=== PATIENT | male | born 1965 | race African-American/Black ===

== ENCOUNTER 2018-03-12 15:38 | Inpatient (IN) | payer OTHER ==
[2018-03-12 19:01] VITALS: BMI 34.4
--- NOTE | 2018-03-12 21:28 | HP ---
CIWA Score - CIWA Score Nausea/Vomitin (VOMITING X 3) Muscle Tremors: 4-Moderate,w/Arms Extend Anxiety: 3 Agitation: 1-Slight > Activity Paroxysmal Sweats: 1-Minimal Palms Moist Orientation: 1-Uncertain about Date Tacttile Disturbances: 0-None Auditory Disturbances: 0-None Visual Disturbances: 0-None Headache: 0-None Present CIWA-Ar Total Score: 13 Admission ROS S - HPI Chief Complaint: Alcohol withdrawal symptoms Allergies/Adverse Reactions: Allergies Allergy/AdvReac Type Severity Reaction Status Date / Time No Known Allergies Allergy Verified 03/12/18 21:15 History of Present Illness: 53 years old male with a long history of alcohol dependence is seeking admission to detox. Patient has been to previous detox and reports 5 years of sobriety. He has a pacemaker and medical history of Type 2 Diabetes, Hypertension. Arthritis, Manic depression and anxiety. He reports 3 suicide attempt in 2017 and denies suicidal ideation at this time. Exam Limitations: No Limitations - Ebola screening Have you traveled outside of the country in the last 21 days: No Have you had contact with anyone from an Ebola affected area: No Have you been sick,other than usual withdrawal symptoms: No Do you have a fever: No - Review of Systems Constitutional: Chills, Night Sweats EENT: reports: No Symptoms Reported Respiratory: reports: No Symptoms reported Cardiac: reports: No Symptoms Reported GI: reports: No Symptoms Reported : reports: No Symptoms Reported Musculoskeletal: reports: Back Pain, Joint Pain, Muscle Pain Integumentary: reports: Dryness, Flushing Neuro: reports: Tingling, Tremors Endocrine: reports: No Symptoms Reported Hematology: reports: No Symptoms Reported Psychiatric: reports: Mood/Affect Appropiate, Anxious, Depressed Other Systems: Reviewed and Negative Patient History - Patient Medical History Hx Anemia: No Hx Asthma: No Hx Chronic Obstructive Pulmonary Disease (COPD): No Hx Cancer: No Hx Cardiac Disorders: Yes Hx Congestive Heart Failure: No Hx Hypertension: Yes (LISINOPRIL) Hx Hypercholesterolemia: Yes Hx Pacemaker: Yes (PACEMAKER TO CHEST WALL 2010) HX Cerebrovascular Accident: No Hx Seizures: No Hx Dementia: No Hx Diabetes: Yes Hx Gastrointestinal Disorders: No Hx Sexually Transmitted Disorders: No Hx Renal Disease (ESRD): No Hx Thyroid Disease: No Hx Human Immunodeficiency Virus (HIV): No Hx Depression: Yes (MAJOR DEPRESSION- ON) Hx Suicide Attempt: Yes (USUICIDE ATTEMPT 3 TIMES IN 2017. DENIES ATTEMPT AT TIS TIME) Hx Bipolar Disorder: Yes Hx Schizophrenia: No - Patient Surgical History Past Surgical History: No Hx Neurologic Surgery: No Hx Cataract Extraction: No Hx Cardiac Surgery: Yes (PACEMAKER) Hx Lung Surgery: No Hx Abdominal Surgery: No Hx Appendectomy: No Hx Cholecystectomy: No Hx Genitourinary Surgery: No Hx Orthopedic Surgery: No Anesthesia Reaction: No - PPD History Previous Implant?: Yes Documented Results: Negative w/proof Implanted On Prior [facility] Admission?: No PPD to be Administered?: Yes - Reproductive History Patient is a Female of Child Bearing Age (11 -55 yrs old): No (MALE) - Smoking Cessation Smoking history: Current every day smoker Have you smoked in the past 12 months: Yes Aproximately how many cigarettes per day: 10 Hx Chewing Tobacco Use: No Initiated information on smoking cessation: Yes 'Breaking Loose' booklet given: 03/12/18 - Substance & Tx. History Hx Alcohol Use: Yes Hx Substance Use: Yes Substance Use Type: Cocaine Hx Substance Use Treatment: Yes ([place], [place]) - Substances Abused Alcohol Route: Oral Frequency: Daily Amount used: 12 PACK BEER Age of first use: 17 Date of Last Use: 03/12/18 Cocaine Route: Smoking Frequency: Daily Amount used: 2 GRAM Age of first use: 26 Date of Last Use: 03/12/18 Family Disease History - Family Disease History Family History: Denies Admission Physical Exam BHS - Vital Signs Vital Signs: Vital Signs - 24 hr 03/12/18 18:59 Temperature 98.8 F Pulse Rate 93 H Respiratory 18 Rate Blood Pressure 143/75 - Physical General Appearance: Yes: Moderate Distress, Tremorous, Irritable, Sweating, Anxious HEENTM: Yes: EOMI, Normal ENT Inspection, Normocephalic, Normal Voice, MADELYN Respiratory: Yes: Chest Non-Tender, Lungs Clear, Normal Breath Sounds, No Respiratory Distress, No Accessory Muscle Use Neck: Yes: Supple Breast: Yes: Breast Exam Deferred Cardiology: Yes: Regular Rhythm, Regular Rate, S1, S2 Genitourinary: Yes: Within Normal Limits Back: Yes: Normal Inspection Musculoskeletal: Yes: Back pain, Joint Stiffness, Muscle Pain Extremities: Yes: Tremors Neurological: Yes: Alert, Motor Strength 5/5, Normal Mood/Affect Integumentary: Yes: Dry Lymphatic: Yes: Within Normal Limits - Diagnostic (1) Alcohol dependence with uncomplicated withdrawal Current Visit: Yes Status: Chronic (2) Cocaine dependence, uncomplicated Current Visit: Yes Status: Chronic (3) Sedative, hypnotic or anxiolytic abuse, uncomplicated Current Visit: Yes Status: Chronic (4) Anxiety Current Visit: Yes Status: Chronic (5) Depression Current Visit: Yes Status: Chronic (6) Hypertension Current Visit: Yes Status: Chronic Cleared for Admission [facility] - Detox or Rehab [facility] Level of Care: Medically Managed Detox Regimen/Protocol: Librium [facility] Breath Alcohol Content Breath Alcohol Content: 0 Urine Drug Screen - Results Drug Screen Negative: No Urine Drug Screen Results: DAMARI-Cocaine, BZO-Benzodiazepines
[2018-03-12] MEDS ORDERED: guaiFENesin/D-METHORPHAN HB 10 ML UNIT-DOSE CUPS PO PRN (21:41)
[2018-03-12] MEDS ORDERED: ACETAMINOPHEN 325 MG TABLET (FP) PO PRN (21:41)
[2018-03-12] MEDS ORDERED: chlordiazePOXIDE HCL 25 MG CAPSULE PO PRN (21:41)
[2018-03-12] MEDS ORDERED: MAG HYDROX/AL HYDROX/SIMETH 30 ML UNIT-DOSE CUP PO PRN (21:41)
[2018-03-12] MEDS ORDERED: IBUPROFEN 400 MG TABLET (FP) PO PRN (21:41)
[2018-03-12] MEDS ORDERED: MAGNESIUM CITRATE 300 ML BOTTLE PO PRN (21:41)
[2018-03-12] MEDS ORDERED: P-EPHED 60MG/TRIPROLIDI 2.5MG TABLET PO PRN (21:41)
[2018-03-12] MEDS ORDERED: MENTHOL/PHENOL 1 EACH UD MM PRN (21:41)
[2018-03-12] MEDS ORDERED: MAGNESIUM HYDROX 2400MG/30ML ORAL SUSPENSION 30 ML CUP PO PRN (21:41)
[2018-03-12] MEDS ORDERED: LOPERAMIDE HCL 2 MG CAPSULE PO PRN (21:41)
[2018-03-12] MEDS ORDERED: NICOTINE POLACRILEX 2 MG GUM BC PRN (21:41)
[2018-03-12] MEDS ORDERED: MELATONIN 5 MG TABLETS PO PRN (22:00)
[2018-03-12] MEDS: THIAMINE HCL 100 MG TABLET (FP) PO SCH (23:02)
[2018-03-12] MEDS: INSULIN (LEVEMIR) 100 UNITS/ML UNITS SQ SCH (23:02)
[2018-03-12] MEDS: chlordiazePOXIDE HCL 25 MG CAPSULE PO SCH (23:02)
[2018-03-13] MEDS: chlordiazePOXIDE HCL 25 MG CAPSULE PO SCH ×4 (05:54→22:06)
[2018-03-13] MEDS: metFORMIN HCL 500 MG TABLET (FP) PO SCH ×2 (07:26→17:25)
[2018-03-13] MEDS: PRENATAL VITAMINS W/ FOLIC ACID TABLET (FP) PO SCH (10:15)
[2018-03-13] MEDS: NICOTINE 14 MG/24 HOURS TOPICAL PATCH TD SCH (10:17)
[2018-03-13 10:26] LABS: HEMATOCRIT 36.9 % (35.4-49); HEMOGLOBIN 12.3 GM/dL (11.7-16.9); MCH 28.9 pg (25.7-33.7); MCHC 33.4 g/dl (32.0-35.9); MEAN CELL VOLUME 86.5 fl (80-96); MEAN PLT VOLUME 10.8 fl (7.5-11.1); PLATELET COUNT 180 K/MM3 (134-434); RBC 4.26 M/mm3 (4.00-5.60); WHITE BLOOD COUNT 6.2 K/mm3 (4.0-10.0)
[2018-03-13 10:31] LABS: URINE APPEARANCE CLEAR; URINE BILIRUBIN NEGATIVE (<2.0 mg/dL); URINE COLOR STRAW; URINE GLUCOSE (UA) 3+ (NEGATIVE); URINE KETONE NEGATIVE (NEGATIVE); URINE LEUK ESTERASE NEGATIVE (NEGATIVE); URINE NITRITE NEGATIVE (NEGATIVE); URINE PROTEIN NEGATIVE (NEGATIVE); URINE UROBILINOGEN NEGATIVE mg/dL (0.2-1.0)
[2018-03-13 11:15] LABS: ALBUMIN 3.4 g/dl (3.4-5.0); ANION GAP 9 (8-16); BLOOD UREA NITROGEN 15 mg/dL (7-18); CALCIUM 8.8 mg/dL (8.5-10.1); CHLORIDE 98 mmol/L (98-107); CO2 27 mmol/L (21-32); SODIUM 134 mmol/L (136-145)
[2018-03-13] MEDS: ASPIRIN COATED 81 MG TABLET.EC PO SCH (11:15)
[2018-03-13 11:18] LABS: ALK PHOS 68 U/L (45-117); BILIRUBIN,TOTAL 0.3 mg/dL (0.2-1.0); SGPT/ALT 27 U/L (12-78); TOT PROT 6.4 g/dl (6.4-8.2)
[2018-03-13 11:29] LABS: GLUCOSE,RANDOM 303 mg/dL (74-106)
[2018-03-13 12:21] LABS: POTASSIUM 4.2 mmol/L (3.5-5.1); SGOT/AST 15 U/L (15-37)
--- NOTE | 2018-03-13 14:48 | PN ---
S CIWA - CIWA Score Nausea/Vomitin Muscle Tremors: 3 Anxiety: 3 Agitation: 3 Paroxysmal Sweats: 1-Minimal Palms Moist Orientation: 0-Oriented Tacttile Disturbances: 1-Very Mild Itch/Numbness Auditory Disturbances: 1-Very Mild Visual Disturbances: 0-None Headache: 2-Mild CIWA-Ar Total Score: 17 BHS Progress Note (SOAP) Subjective: alert,irritable,anxious,interrupted sleep,tremor,pain in the left hip s/p surgery Objective: 03/13/18 14:46 Vital Signs Temperature 97.7 F 03/13/18 10:00 Pulse Rate 88 03/13/18 10:00 Respiratory Rate 16 03/13/18 10:00 Blood Pressure 128/75 03/13/18 10:00 O2 Sat by Pulse Oximetry (%) Vital Signs Temperature 97.7 F 03/13/18 10:00 Pulse Rate 88 03/13/18 10:00 Respiratory Rate 16 03/13/18 10:00 Blood Pressure 128/75 03/13/18 10:00 O2 Sat by Pulse Oximetry (%) 03/13/18 14:46 Laboratory Last Values WBC 6.2 K/mm3 (4.0-10.0) 03/13/18 08:00 RBC 4.26 M/mm3 (4.00-5.60) 03/13/18 08:00 Hgb 12.3 GM/dL (11.7-16.9) 03/13/18 08:00 Hct 36.9 % (35.4-49) 03/13/18 08:00 MCV 86.5 fl (80-96) 03/13/18 08:00 MCH 28.9 pg (25.7-33.7) 03/13/18 08:00 MCHC 33.4 g/dl (32.0-35.9) 03/13/18 08:00 RDW 15.0 % (11.9-15.9) 03/13/18 08:00 Plt Count 180 K/MM3 (134-434) 03/13/18 08:00 MPV 10.8 fl (7.5-11.1) 03/13/18 08:00 Sodium 134 mmol/L (136-145) L 03/13/18 08:00 Potassium 4.2 mmol/L (3.5-5.1) 03/13/18 08:00 Chloride 98 mmol/L (98-107) 03/13/18 08:00 Carbon Dioxide 27 mmol/L (21-32) 03/13/18 08:00 Anion Gap 9 (8-16) 03/13/18 08:00 BUN 15 mg/dL (7-18) 03/13/18 08:00 Creatinine 1.0 mg/dL (0.7-1.3) 03/13/18 08:00 Creat Clearance w eGFR > 60 (>60) 03/13/18 08:00 POC Glucometer 266 UNITS (80-120) 03/13/18 05:52 Random Glucose 303 mg/dL (74-106) H* 03/13/18 08:00 Calcium 8.8 mg/dL (8.5-10.1) 03/13/18 08:00 Total Bilirubin 0.3 mg/dL (0.2-1.0) 03/13/18 08:00 AST 15 U/L (15-37) 03/13/18 08:00 ALT 27 U/L (12-78) 03/13/18 08:00 Alkaline Phosphatase 68 U/L (45-117) 03/13/18 08:00 Total Protein 6.4 g/dl (6.4-8.2) 03/13/18 08:00 Albumin 3.4 g/dl (3.4-5.0) 03/13/18 08:00 Urine Color Straw 03/13/18 08:30 Urine Appearance Clear 03/13/18 08:30 Urine pH 5.0 (5.0-8.0) 03/13/18 08:30 Ur Specific [place] 1.030 (1.001-1.035) 03/13/18 08:30 Urine Protein Negative (NEGATIVE) 03/13/18 08:30 Urine Glucose (UA) 3+ (NEGATIVE) H 03/13/18 08:30 Urine Ketones Negative (NEGATIVE) 03/13/18 08:30 Urine Blood Negative (NEGATIVE) 03/13/18 08:30 Urine Nitrite Negative (NEGATIVE) 03/13/18 08:30 Urine Bilirubin Negative (<2.0 mg/dL) 03/13/18 08:30 Urine Urobilinogen Negative mg/dL (0.2-1.0) 03/13/18 08:30 Ur Leukocyte Esterase Negative (NEGATIVE) 03/13/18 08:30 RPR Titer Nonreactive (NONREACTIVE) 03/13/18 08:00 Assessment: 03/13/18 14:47 withdrawal symptom Plan: continue detox,bgm monitoring
--- NOTE | 2018-03-13 16:05 | CONSULT ---
[facility] Psychiatric Consult - Data Date of interview: 03/13/18 Admission source: [facility] Identifying data: First admission to [facility] for this 53 y/o AA male seeking detox treatment on for alcohol,cocaine and canna bis dependence.Patient is ,a father of one,homeless,unemployed and receiving food stamps. Substance Abuse History: Confirmed by patient in this interview.Smoking history : Current every day smoker. Have you smoked in the past 12 months: Yes. Aproximately how many cigarettes per day: 10. Hx Chewing Tobacco Use: No. Initiated information on smoking cessation: Yes. 'Breaking Loose' booklet given : 03/12/18. - Substance & Tx. History. Hx Alcohol Use: Yes. Hx Substance Use : Yes. Substance Use Type: Cocaine. Hx Substance Use Treatment: Yes ([place], [place] - Substances Abused. Alcohol. Route: Oral. Frequency: Daily. Amount used: 12 PACK BEER. Age of first use: 17. Date of Last Use: 03/12/18. Cocaine. Route: Smoking. Frequency: Daily. Amount used: 2 GRAM. Age of first use: 26. Date of Last Use: 03/12/18 Medical History: Diabetes mellitus,hypertension,pacemaker on chest wall and a history of arthritis. Psychiatric History: Patient admits to a history of three psychiatric hospitalizations([facility] in [facility] + facilities in [place] and [place]).Diagnosed with Bipolar Disorder.Mr Lyons that he sees a psychiatrist at the [facility] in [facility].Patient is prescribed abilify and " something else ". Adherence to psychiatric aftercare remains questionable.As per self-report : three suicide attempts (overdose with seroquel + deliberate jump into path of oncoming traffic on two occasions).Most recent attempt occurred around August 2016. Physical/Sexual Abuse/Trauma History: No history. Additional Comment: Urine Drug Screen Results: DAMARI-Cocaine, BZO- Benzodiazepines.Noted. Mental Status Exam - Mental Status Exam Alert and Oriented to: Time, Place, Person Cognitive Function: Good Patient Appearance: Well Groomed Mood: Nervous, Anxious, Hopeful Affect: Mood Congruent Patient Behavior: Fatigued, Appropriate, Cooperative Speech Pattern: Clear Voice Loudness: Normal Thought Process: Intact, Goal Oriented Thought Disorder: Not Present Hallucinations: Denies Suicidal Ideation: Denies Homicidal Ideation: Denies Insight/Judgement: Poor Sleep: Well Appetite: Good Gait/Station: Other (walks with a limp ; currently requesting a cane for support ) Psychiatric Findings - Problem List ([place] 1, 2,3) (1) Alcohol dependence with uncomplicated withdrawal Current Visit: Yes Status: Chronic (2) Cocaine dependence, uncomplicated Current Visit: Yes Status: Chronic (3) Nicotine dependence Current Visit: Yes Status: Acute (4) Substance induced mood disorder Current Visit: Yes Status: Acute Comment: Suspected. (5) Bipolar disorder Current Visit: No Status: Chronic Comment: As per self-report.On aripriprazole. - Initial Treatment Plan Initial Treatment Plan: Psychoeducation.Sleep hygiene.Detoxification in progress.review of pharmacy claims yields evidence of refills for lamotrigine 25 mg/day + abilify 10 mg/day isssued on 03/11/18 at [facility].Will re-start abilify 10 mg po daily.Lamotrigine held.Side effects/ benefits of both drugs are discussed with the patient.Mr Lyons is in agreement with [facility] careplan.Observation.
--- NOTE | 2018-03-13 19:00 | EKG ---
Test Reason : Blood Pressure : / mmHG Vent. Rate : 083 BPM Atrial Rate : 083 BPM P-R Int : 202 ms QRS Dur : 142 ms QT Int : 374 ms P-R-T Axes : 076 059 032 degrees QTc Int : 439 ms NORMAL SINUS RHYTHM RIGHT BUNDLE BRANCH BLOCK ABNORMAL ECG NO PREVIOUS ECGS AVAILABLE Confirmed by MD RITU, YOLIS ([id number]) on 03/13/2018 7:00:24 PM Referred By: Confirmed By:YOLIS CHANEY MD
[2018-03-13] MEDS: INSULIN (LEVEMIR) 100 UNITS/ML UNITS SQ SCH (21:18)
[2018-03-13] MEDS: THIAMINE HCL 100 MG TABLET (FP) PO SCH (21:18)
[2018-03-14] MEDS: chlordiazePOXIDE HCL 25 MG CAPSULE PO SCH ×3 (06:11→17:30)
[2018-03-14] MEDS: metFORMIN HCL 500 MG TABLET (FP) PO SCH ×2 (07:06→17:30)
[2018-03-14] MEDS ORDERED: INSULIN (NOVOLOG) ASPART 100 UNITS/ML 10ML VIAL SQ ONE (07:58)
[2018-03-14] MEDS: NICOTINE 14 MG/24 HOURS TOPICAL PATCH TD SCH (10:14)
[2018-03-14] MEDS: ARIPiprazole 10 MG TABLET PO SCH (10:14)
[2018-03-14] MEDS: ASPIRIN COATED 81 MG TABLET.EC PO SCH (10:14)
[2018-03-14] MEDS: PRENATAL VITAMINS W/ FOLIC ACID TABLET (FP) PO SCH (10:14)
--- NOTE | 2018-03-14 18:10 | PN ---
[facility] CIWA - CIWA Score Nausea/Vomitin-Mild Nausea/No Vomiting Muscle Tremors: 1-None Visible, but [place] Anxiety: 1-Mildly Anxious Agitation: 4-Moderately Restless Paroxysmal Sweats: No Perspiration Orientation: 0-Oriented Tacttile Disturbances: 0-None Auditory Disturbances: 0-None Visual Disturbances: 0-None Headache: 0-None Present CIWA-Ar Total Score: 7 S Progress Note (SOAP) Subjective: c/o mild nausea and anxiety. Tolerating diet well. Objective: Scored 7 on CIWA. Alert and oriented x 3. Lungs CTA. Abdomen soft and non- tender. Bowel sounds (+) 03/14/18 18:08 03/14/18 18:08 Lab Results WBC 6.2 K/mm3 (4.0-10.0) 03/13/18 08:00 RBC 4.26 M/mm3 (4.00-5.60) 03/13/18 08:00 Hgb 12.3 GM/dL (11.7-16.9) 03/13/18 08:00 Hct 36.9 % (35.4-49) 03/13/18 08:00 MCV 86.5 fl (80-96) 03/13/18 08:00 MCHC 33.4 g/dl (32.0-35.9) 03/13/18 08:00 RDW 15.0 % (11.9-15.9) 03/13/18 08:00 Plt Count 180 K/MM3 (134-434) 03/13/18 08:00 Sodium 134 mmol/L (136-145) L 03/13/18 08:00 Potassium 4.2 mmol/L (3.5-5.1) 03/13/18 08:00 Chloride 98 mmol/L (98-107) 03/13/18 08:00 Carbon Dioxide 27 mmol/L (21-32) 03/13/18 08:00 Anion Gap 9 (8-16) 03/13/18 08:00 BUN 15 mg/dL (7-18) 03/13/18 08:00 Creatinine 1.0 mg/dL (0.7-1.3) 03/13/18 08:00 Random Glucose 303 mg/dL (74-106) H* 03/13/18 08:00 Calcium 8.8 mg/dL (8.5-10.1) 03/13/18 08:00 Vital Signs - 24 hr 03/13/18 03/13/18 03/14/18 18:15 23:09 00:30 Temperature 97.9 F 98.2 F Pulse Rate 89 87 Respiratory 20 20 18 Rate Blood Pressure 120/74 119/72 03/14/18 03/14/18 03/14/18 07:35 10:00 15:18 Temperature 97.3 F L 97.1 F L 97.3 F L Pulse Rate 73 89 91 H Respiratory 18 16 20 Rate Blood Pressure 138/78 149/89 154/78 Labs reviewed. Assessment: Alcohol withdrawal. Plan: Continue detox protocol.
[2018-03-14] MEDS: INSULIN (LEVEMIR) 100 UNITS/ML UNITS SQ SCH (22:26)
[2018-03-14] MEDS: THIAMINE HCL 100 MG TABLET (FP) PO SCH (22:26)
[2018-03-14] MEDS: chlordiazePOXIDE 5 MG CAPSULE PO SCH (22:26)
[2018-03-15] MEDS: chlordiazePOXIDE 5 MG CAPSULE PO SCH ×3 (06:13→16:27)
[2018-03-15] MEDS: metFORMIN HCL 500 MG TABLET (FP) PO SCH ×2 (06:27→16:27)
[2018-03-15] MEDS ORDERED: INSULIN (NOVOLOG) ASPART 100 UNITS/ML 10ML VIAL SQ ONE (08:10)
[2018-03-15] MEDS ORDERED: INSULIN (NOVOLOG) ASPART 100 UNITS/ML 10ML VIAL ONE ×3 (08:58→21:59)
[2018-03-15] MEDS: ARIPiprazole 10 MG TABLET PO SCH (10:20)
[2018-03-15] MEDS: ASPIRIN COATED 81 MG TABLET.EC PO SCH (10:20)
[2018-03-15] MEDS: PRENATAL VITAMINS W/ FOLIC ACID TABLET (FP) PO SCH (10:20)
[2018-03-15] MEDS: NICOTINE 14 MG/24 HOURS TOPICAL PATCH TD SCH (10:21)
[2018-03-15] MEDS: INSULIN (NOVOLOG) ASPART 100 UNITS/ML 10ML VIAL SQ SCH ×3 (11:28→22:06)
--- NOTE | 2018-03-15 12:56 | PN ---
BHS Progress Note (SOAP) Subjective: alert,irritable,anxious,interrupted sleep, Objective: 03/15/18 12:52 Vital Signs Temperature 97.7 F 03/15/18 11:06 Pulse Rate 95 H 03/15/18 11:06 Respiratory Rate 18 03/15/18 11:06 Blood Pressure 141/78 03/15/18 11:06 O2 Sat by Pulse Oximetry (%) 03/15/18 12:53 withdrawal symptom 03/15/18 12:53 bgm 360 Assessment: 03/15/18 12:54 withdrawal symptom Plan: continue detox,bgm achs with insulin cerage,hba1c,discharge in am,advise follow up with primary care provider and own client support associate at [facility] upon discharge
[2018-03-15] MEDS: THIAMINE HCL 100 MG TABLET (FP) PO SCH (22:05)
[2018-03-15] MEDS: chlordiazePOXIDE HCL 10 MG CAPSULE PO SCH (22:05)
[2018-03-15] MEDS: INSULIN (LEVEMIR) 100 UNITS/ML UNITS SQ SCH (22:08)
[2018-03-16] MEDS: chlordiazePOXIDE HCL 10 MG CAPSULE PO SCH (05:50)
[2018-03-16] MEDS: metFORMIN HCL 500 MG TABLET (FP) PO SCH (06:04)
[2018-03-16 06:23] VITALS: BP 121/76; PULSE 79; TEMP 97.9
[2018-03-16] MEDS ORDERED: INSULIN (NOVOLOG) ASPART 100 UNITS/ML 10ML VIAL ONE (07:44)
[2018-03-16] MEDS: INSULIN (NOVOLOG) ASPART 100 UNITS/ML 10ML VIAL SQ SCH ×2 (07:44→11:46)
--- NOTE | 2018-03-16 10:13 | PN ---
BHS Progress Note (SOAP) Subjective: alert,no complaint Objective: 03/16/18 10:07 Vital Signs Temperature 97.9 F 03/16/18 06:00 Pulse Rate 79 03/16/18 06:00 Respiratory Rate 18 03/16/18 06:00 Blood Pressure 121/76 03/16/18 06:00 O2 Sat by Pulse Oximetry (%) 03/16/18 10:07 bgm 356 Assessment: 03/16/18 10:09 detox completed ,no withdrawal symptom Plan: discharge today,follow up with after care program as arrangement and primary care physician and fourth hand for diabetic management and medical problem ,to er if emergency medical problem
--- NOTE | 2018-03-16 10:18 | DS ---
[facility] Detox Discharge Summary Admission Date: 03/12/18 Discharge Date: 03/16/18 - History Present History: Alcohol Dependence, Cocaine Dependence, Sedative Dependence Additional Comments: follow up with after care program as arrangement and to see primary care provider and emr implementation specialist for diabetic problem to er if emergency medical problem Pertinent Past History: hypertension type 2 dm insulin dependence - Physical Exam Results Vital Signs: Vital Signs Temperature 97.9 F 03/16/18 06:00 Pulse Rate 79 03/16/18 06:00 Respiratory Rate 18 03/16/18 06:00 Blood Pressure 121/76 03/16/18 06:00 O2 Sat by Pulse Oximetry (%) Pertinent Admission Physical Exam Findings: withdrawal signs and symptom Vital Signs Temperature 97.9 F 03/16/18 06:00 Pulse Rate 79 03/16/18 06:00 Respiratory Rate 18 03/16/18 06:00 Blood Pressure 121/76 03/16/18 06:00 O2 Sat by Pulse Oximetry (%) Laboratory Last Values WBC 6.2 K/mm3 (4.0-10.0) 03/13/18 08:00 RBC 4.26 M/mm3 (4.00-5.60) 03/13/18 08:00 Hgb 12.3 GM/dL (11.7-16.9) 03/13/18 08:00 Hct 36.9 % (35.4-49) 03/13/18 08:00 MCV 86.5 fl (80-96) 03/13/18 08:00 MCH 28.9 pg (25.7-33.7) 03/13/18 08:00 MCHC 33.4 g/dl (32.0-35.9) 03/13/18 08:00 RDW 15.0 % (11.9-15.9) 03/13/18 08:00 Plt Count 180 K/MM3 (134-434) 03/13/18 08:00 MPV 10.8 fl (7.5-11.1) 03/13/18 08:00 Sodium 134 mmol/L (136-145) L 03/13/18 08:00 Potassium 4.2 mmol/L (3.5-5.1) 03/13/18 08:00 Chloride 98 mmol/L (98-107) 03/13/18 08:00 Carbon Dioxide 27 mmol/L (21-32) 03/13/18 08:00 Anion Gap 9 (8-16) 03/13/18 08:00 BUN 15 mg/dL (7-18) 03/13/18 08:00 Creatinine 1.0 mg/dL (0.7-1.3) 03/13/18 08:00 Creat Clearance w eGFR > 60 (>60) 03/13/18 08:00 POC Glucometer 356 UNITS (80-120) 03/16/18 05:52 Random Glucose 303 mg/dL (74-106) H* 03/13/18 08:00 Calcium 8.8 mg/dL (8.5-10.1) 03/13/18 08:00 Total Bilirubin 0.3 mg/dL (0.2-1.0) 03/13/18 08:00 AST 15 U/L (15-37) 03/13/18 08:00 ALT 27 U/L (12-78) 03/13/18 08:00 Alkaline Phosphatase 68 U/L (45-117) 03/13/18 08:00 Total Protein 6.4 g/dl (6.4-8.2) 03/13/18 08:00 Albumin 3.4 g/dl (3.4-5.0) 03/13/18 08:00 Urine Color Straw 03/13/18 08:30 Urine Appearance Clear 03/13/18 08:30 Urine pH 5.0 (5.0-8.0) 03/13/18 08:30 Ur Specific [place] 1.030 (1.001-1.035) 03/13/18 08:30 Urine Protein Negative (NEGATIVE) 03/13/18 08:30 Urine Glucose (UA) 3+ (NEGATIVE) H 03/13/18 08:30 Urine Ketones Negative (NEGATIVE) 03/13/18 08:30 Urine Blood Negative (NEGATIVE) 03/13/18 08:30 Urine Nitrite Negative (NEGATIVE) 03/13/18 08:30 Urine Bilirubin Negative (<2.0 mg/dL) 03/13/18 08:30 Urine Urobilinogen Negative mg/dL (0.2-1.0) 03/13/18 08:30 Ur Leukocyte Esterase Negative (NEGATIVE) 03/13/18 08:30 RPR Titer Nonreactive (NONREACTIVE) 08/18/18 08:00 - Treatment Hospital Course: Detox Protocol Followed, Detoxed Safely, Responded well, Discharged Condition Good Patient has Accepted a Rehab Referral to: declined - Medication Discharge Medications: Ambulatory Orders Aripiprazole 10 mg PO DAILY 03/12/18 Aripiprazole [Abilify] 20 mg PO DAILY 03/12/18 Aspirin [Aspirin EC] 81 mg PO DAILY 03/12/18 Insulin Detemir [Levemir Flextouch] 35 unit SQ HS 03/12/18 Lamotrigine [Lamictal] 5 mg PO DAILY 03/12/18 Omeprazole Magnesium [Prilosec Otc] 40 mg PO DAILY 03/12/18 metFORMIN HCL [Metformin HCl] 1,000 mg PO BID 03/12/18 - Diagnosis (1) Alcohol dependence with uncomplicated withdrawal Current Visit: Yes Status: Chronic (2) Anxiety Current Visit: Yes Status: Chronic (3) Cocaine dependence, uncomplicated Current Visit: Yes Status: Chronic (4) Depression Current Visit: Yes Status: Chronic (5) Hypertension Current Visit: Yes Status: Chronic Qualifiers: Hypertension type: unspecified Qualified Code(s): I10 - Essential (primary ) hypertension (6) Sedative, hypnotic or anxiolytic abuse, uncomplicated Current Visit: Yes Status: Chronic (7) DM2 (diabetes mellitus, type 2) Current Visit: Yes Status: Acute (8) IDDM (insulin dependent diabetes mellitus) Current Visit: Yes Status: Acute - AMA Did Patient Leave Against Medical Advice: No
[2018-03-16] MEDS: NICOTINE 14 MG/24 HOURS TOPICAL PATCH TD SCH (10:48)
[2018-03-16] MEDS: PRENATAL VITAMINS W/ FOLIC ACID TABLET (FP) PO SCH (10:48)
[2018-03-16] MEDS: ARIPiprazole 10 MG TABLET PO SCH (10:48)
[2018-03-16] MEDS: ASPIRIN COATED 81 MG TABLET.EC PO SCH (10:49)
== END 2018-03-16 11:45 | disposition other institution (70) | DRG 774 ==
LOC: YASAS 15:38 → Y6N 20:24
PROVIDERS: ADMIT Surgery; ATTEND Surgery
PROC: HZ2ZZZZ Detoxification Services for Substance Abuse Treatment (ICD-10-PCS; principal; 2018-03-12)
DX: F10.230 Alcohol dependence with withdrawal, uncomplicated (principal); F14.20 Cocaine dependence, uncomplicated; F13.10 Sedative, hypnotic or anxiolytic abuse, uncomplicated; F17.210 Nicotine dependence, cigarettes, uncomplicated; F41.9 Anxiety disorder, unspecified; F32.9 Major depressive disorder, single episode, unspecified; F19.24 Other psychoactive substance dependence with psychoactive substance-induced mood disorder; F31.9 Bipolar disorder, unspecified; I10 Essential (primary) hypertension; E11.8 Type 2 diabetes mellitus with unspecified complications; E78.00 Pure hypercholesterolemia, unspecified; Z79.4 Long term (current) use of insulin; Z79.84 Long term (current) use of oral hypoglycemic drugs; Z95.0 Presence of cardiac pacemaker; Z91.5 Personal history of self-harm; Z59.0 Homelessness
CPT/HCPCS: 36415; 80053; 81003; 82962; 85027; 86593; 93005; 93010

== ENCOUNTER 2018-03-16 12:59 | Inpatient (IN) | payer OTHER ==
[2018-03-16] MEDS ORDERED: MAGNESIUM CITRATE 300 ML BOTTLE PO PRN (14:00)
[2018-03-16] MEDS ORDERED: guaiFENesin/D-METHORPHAN HB 10 ML UNIT-DOSE CUPS PO PRN (14:00)
[2018-03-16] MEDS ORDERED: IBUPROFEN 400 MG TABLET (FP) PO PRN (14:00)
[2018-03-16] MEDS ORDERED: MENTHOL/PHENOL 1 EACH UD MM PRN (14:00)
[2018-03-16] MEDS ORDERED: ACETAMINOPHEN 325 MG TABLET (FP) PO PRN (14:00)
[2018-03-16] MEDS ORDERED: MAGNESIUM HYDROX 2400MG/30ML ORAL SUSPENSION 30 ML CUP PO PRN (14:00)
[2018-03-16] MEDS ORDERED: P-EPHED 60MG/TRIPROLIDI 2.5MG TABLET PO PRN (14:00)
[2018-03-16] MEDS ORDERED: hydrOXYzine PAMOATE 50 MG CAPSULE (FP) PO PRN (14:00)
[2018-03-16] MEDS ORDERED: MAG HYDROX/AL HYDROX/SIMETH 30 ML UNIT-DOSE CUP PO PRN (14:00)
[2018-03-16] MEDS ORDERED: LOPERAMIDE HCL 2 MG CAPSULE PO PRN (14:00)
--- NOTE | 2018-03-16 14:00 | HP ---
[facility] Rehab Assess/Revision - Admission History Admitted to Rehab from: [facility] Date of Admission to Rehab: 03/16/18 - Findings Detox History & Physical reviewed: Yes Concur with findings: Yes Comments/Additional Findings: for rehab as protocol Inpatient Rehab Admission - Initial Determination Are CD services needed?: Yes Free of communicable disease: Yes Not in need of hospitalization: Yes - Rehab Admission Criteria Previous failed treatment: Yes Poor recovery environment: Yes Comorbidities: Yes Lacks judgement: No Patient is meeting Inpatient Rehab admission criteria:: Yes
--- NOTE | 2018-03-16 15:08 | PN ---
S Progress Note Note: Psychiatrist Note: Called by nurse to order medication for newly admitted patient from . External medication shows pharmacy claims for scripts of Abilify 10 mg daily and Lamotrigine 25 mg daily filed on 03/11/18. Medications ordered for patient
[2018-03-16] MEDS: INSULIN (NOVOLOG) ASPART 100 UNITS/ML 10ML VIAL SQ SCH ×2 (16:59→21:28)
[2018-03-16] MEDS: metFORMIN HCL 500 MG TABLET (FP) PO SCH (16:59)
--- NOTE | 2018-03-16 17:05 | PN ---
[facility] Progress Note Note: Vital Signs Temperature 98.8 F 03/16/18 14:07 Pulse Rate 93 H 03/16/18 14:07 Respiratory Rate 18 03/16/18 14:07 Blood Pressure 138/86 03/16/18 14:07 O2 Sat by Pulse Oximetry (%) Call received from MAVIS Vicente re: asymptomatic patient, BGM 527, patient was given metformin and novolog 12 units and additional 4 units of novolog ordered increase PO fluids repeat BGM in 30 - 45 min continue to monitor
[2018-03-16] MEDS ORDERED: INSULIN (NOVOLOG) ASPART 100 UNITS/ML 10ML VIAL SQ ONE (17:15)
[2018-03-16] MEDS ORDERED: INSULIN (NOVOLOG) ASPART 100 UNITS/ML 10ML VIAL ONE ×2 (17:23)
[2018-03-16] MEDS: THIAMINE HCL 100 MG TABLET (FP) PO SCH (21:24)
[2018-03-16] MEDS: INSULIN (LEVEMIR) 100 UNITS/ML UNITS SQ SCH (21:24)
[2018-03-16] MEDS ORDERED: MELATONIN 5 MG TABLETS PO PRN (22:00)
[2018-03-17] MEDS ORDERED: INSULIN (NOVOLOG) ASPART 100 UNITS/ML 10ML VIAL SQ ONE (03:58)
[2018-03-17] MEDS: metFORMIN HCL 500 MG TABLET (FP) PO SCH ×2 (06:22→16:51)
[2018-03-17] MEDS ORDERED: INSULIN (NOVOLOG) ASPART 100 UNITS/ML 10ML VIAL ONE ×4 (06:53→23:06)
[2018-03-17] MEDS: INSULIN (NOVOLOG) ASPART 100 UNITS/ML 10ML VIAL SQ SCH ×4 (06:55→21:23)
--- NOTE | 2018-03-17 08:32 | HP ---
Psychiatrist Admission - Data Date of interview: 03/17/18 Admission source: [facility] Identifying data: Patient is a 53 year old single male, father of one, unemployed (denies receiving financial assistance), and currently homeless. This is patient's first admission to rehab at [facility]. Pt. admitted to for alcohol, cocaine, and marijuana dependence. Medical History: hypertension, pacemaker Psychiatric History: Patient's first psychiatric contact was in [facility] for depression. Pt. was started on celexa. Patient's depression got worst as time progress and patient soon began to develop anxiety. Patient states his depression worsen to manic depression. Pt. reports multiple psychiatric hospitalizations, most recently was in January of 2018 at [facility]. Patient is also known to [facility] and other hospitals in [facility]. OPD is currently provided at [facility]. Diagnosis of bipolar disorder. Pt. is currently prescribed abilify 10mg + Lamictal 25mg daily. Patient reports three suicide attempts all in 2017 (two attempts he jumped in front of a car and the third attempt patient overdosed on seroquel). Pt currently denies suicidal and homicidal ideation. Physical/Sexual Abuse/Trauma History: denies Vital Signs: Vital Signs - 24 hr 03/16/18 03/17/18 03/17/18 14:07 01:02 03:30 Temperature 98.8 F Pulse Rate 93 H Respiratory 18 18 18 Rate Blood Pressure 138/86 03/17/18 06:47 Temperature 97.1 F L Pulse Rate 87 Respiratory 18 Rate Blood Pressure 141/90 Allergies/Adverse Reactions: Allergies Allergy/AdvReac Type Severity Reaction Status Date / Time No Known Allergies Allergy Verified 03/16/18 13:30 Date of last physical exam: 03/12/18 Concur with the findings of this exam: Yes - Substance Abuse/Tx History Hx Alcohol Use: Yes (12 beers daily + pint depending on how much money he has. ) Hx Substance Use: Yes (cocaine- 2 grams daily Marijuana- 1 gram daily) Substance Use Type: Cocaine, Marijuana Hx Substance Use Treatment: Yes ([facility] in [place]) Mental Status Exam - Mental Status Exam Alert and Oriented to: Time, Place, Person Cognitive Function: Good Patient Appearance: Well Groomed Mood: Euthymic Affect: Appropriate, Mood Congruent Patient Behavior: Appropriate, Cooperative Speech Pattern: Clear, Appropriate Voice Loudness: Normal Thought Process: Intact Thought Disorder: Not Present Hallucinations: Denies Suicidal Ideation: Denies Homicidal Ideation: Denies Insight/Judgement: Poor Sleep: Fair Appetite: Fair Muscle strength/Tone: Normal Gait/Station: Other (Patient ambulates with a cane.) Psychiatric Findings - Problem List ([place] 1, 2,3) (1) Bipolar disorder Current Visit: Yes Status: Chronic Comment: As per self-report.On aripriprazole. (2) Alcohol dependence Current Visit: Yes Status: Acute (3) Cocaine dependence Current Visit: Yes Status: Chronic - Initial Treatment Plan Initial Treatment Plan: Psychoeducation provided. Detoxification in progress. Will continue current medications of abilify 10mg + Lamictal 25mg daily. Benefits and side effects discussed. Verbal consent given.
[2018-03-17] MEDS: lamoTRIgine 25 MG TABLET PO SCH (10:02)
[2018-03-17] MEDS: PRENATAL VITAMINS W/ FOLIC ACID TABLET (FP) PO SCH (10:02)
[2018-03-17] MEDS: ARIPiprazole 10 MG TABLET PO SCH (10:02)
[2018-03-17] MEDS: LISINOPRIL 10 MG TABLET (FP) PO SCH (10:02)
[2018-03-17] MEDS: ASPIRIN COATED 81 MG TABLET.EC PO SCH (10:03)
--- NOTE | 2018-03-17 13:31 | PN ---
[facility] Progress Note Note: Vital Signs Temperature 97.1 F L 03/17/18 06:47 Pulse Rate 93 H 03/17/18 10:00 Respiratory Rate 18 03/17/18 06:47 Blood Pressure 142/86 03/17/18 10:00 O2 Sat by Pulse Oximetry (%) Laboratory Last Values POC Glucometer 349 UNITS (80-120) 03/17/18 06:21 Patient reports last A1C at PCP office about three months ago of 12. Reports concern regarding recent elevated BGM. Patient currently on metformin 1000mg BID and levemir qhs. Patient was started yesterday on sliding scale and BGM today shows improvement. c/o of dry skin on both feet. Patient stable, no distress, no symptoms reported at this times A&D oint for dry skin continue to monitor
[2018-03-17] MEDS: VITAMINS A AND D TOPICAL OINTMENT 60 GM TUBE TP SCH ×2 (15:00→21:23)
[2018-03-17] MEDS: INSULIN (LEVEMIR) 100 UNITS/ML UNITS SQ SCH (21:22)
[2018-03-17] MEDS: THIAMINE HCL 100 MG TABLET (FP) PO SCH (21:23)
--- NOTE | 2018-03-17 22:08 | PN ---
[facility] Progress Note Note: Vital Signs Temperature 97.1 F L 03/17/18 06:47 Pulse Rate 93 H 03/17/18 10:00 Respiratory Rate 18 03/17/18 06:47 Blood Pressure 142/86 03/17/18 10:00 O2 Sat by Pulse Oximetry (%) Patient with hx of DAMARI, ETOH, and Benzo dependence is here for rehab. Reports polyuria with 11 trips to the bathroom this afternoon. Reports "not feeling well " and hx of seizure related to elevated glucose. Patient with BGM 514. Patient was given novolog 12 units today at 21:23 and 35 units levemir at 21: 22 and Glucophage 1,000 mg 16:51. Patient sent to [facility] for further evaluation via [facility], multiple calls made endorse patient with no success.
[2018-03-18] MEDS: VITAMINS A AND D TOPICAL OINTMENT 60 GM TUBE TP SCH ×3 (07:22→21:27)
[2018-03-18] MEDS: INSULIN (NOVOLOG) ASPART 100 UNITS/ML 10ML VIAL SQ SCH ×4 (07:23→21:26)
[2018-03-18] MEDS: metFORMIN HCL 500 MG TABLET (FP) PO SCH ×2 (07:23→16:36)
[2018-03-18] MEDS: ARIPiprazole 10 MG TABLET PO SCH (10:16)
[2018-03-18] MEDS: lamoTRIgine 25 MG TABLET PO SCH (10:16)
[2018-03-18] MEDS: LISINOPRIL 10 MG TABLET (FP) PO SCH (10:16)
[2018-03-18] MEDS: PRENATAL VITAMINS W/ FOLIC ACID TABLET (FP) PO SCH (10:16)
[2018-03-18] MEDS: ASPIRIN COATED 81 MG TABLET.EC PO SCH (10:16)
[2018-03-18] MEDS: CYCLOBENZAPRINE HCL 10 MG TABLET (FP) PO PRN ×2 (10:17→21:28)
[2018-03-18] MEDS ORDERED: INSULIN (NOVOLOG) ASPART 100 UNITS/ML 10ML VIAL ONE ×3 (11:52→16:59)
[2018-03-18] MEDS: INSULIN (LEVEMIR) 100 UNITS/ML UNITS SQ SCH (21:25)
[2018-03-18] MEDS: THIAMINE HCL 100 MG TABLET (FP) PO SCH (21:27)
[2018-03-19] MEDS: metFORMIN HCL 500 MG TABLET (FP) PO SCH ×2 (06:43→16:45)
[2018-03-19] MEDS ORDERED: INSULIN (NOVOLOG) ASPART 100 UNITS/ML 10ML VIAL ONE ×4 (07:30→21:48)
[2018-03-19] MEDS: INSULIN (NOVOLOG) ASPART 100 UNITS/ML 10ML VIAL SQ SCH ×4 (07:31→21:15)
[2018-03-19] MEDS: VITAMINS A AND D TOPICAL OINTMENT 60 GM TUBE TP SCH ×3 (07:33→21:16)
[2018-03-19] MEDS: ARIPiprazole 10 MG TABLET PO SCH (10:02)
[2018-03-19] MEDS: PRENATAL VITAMINS W/ FOLIC ACID TABLET (FP) PO SCH (10:02)
[2018-03-19] MEDS: ASPIRIN COATED 81 MG TABLET.EC PO SCH (10:02)
[2018-03-19] MEDS: lamoTRIgine 25 MG TABLET PO SCH (10:02)
[2018-03-19] MEDS: LISINOPRIL 10 MG TABLET (FP) PO SCH (10:02)
--- NOTE | 2018-03-19 13:13 | PN ---
[facility] Progress Note Note: superficial laceration volar aspect of right big toe no bleeding,no erythema, bacitracin ointment bid, diabetic control with bgm monitoring
[2018-03-19] MEDS: BACITRACIN 0.9 GM PACKET TP SCH ×2 (14:36→21:16)
[2018-03-19] MEDS: CYCLOBENZAPRINE HCL 10 MG TABLET (FP) PO PRN (14:38)
[2018-03-19] MEDS: THIAMINE HCL 100 MG TABLET (FP) PO SCH (21:15)
[2018-03-19] MEDS: INSULIN (LEVEMIR) 100 UNITS/ML UNITS SQ SCH (21:15)
[2018-03-20] MEDS: metFORMIN HCL 500 MG TABLET (FP) PO SCH ×2 (06:17→16:40)
[2018-03-20] MEDS: VITAMINS A AND D TOPICAL OINTMENT 60 GM TUBE TP SCH ×3 (06:19→22:05)
[2018-03-20] MEDS: INSULIN (NOVOLOG) ASPART 100 UNITS/ML 10ML VIAL SQ SCH ×4 (06:19→22:04)
[2018-03-20] MEDS: ASPIRIN COATED 81 MG TABLET.EC PO SCH (10:01)
[2018-03-20] MEDS: LISINOPRIL 10 MG TABLET (FP) PO SCH (10:01)
[2018-03-20] MEDS: PRENATAL VITAMINS W/ FOLIC ACID TABLET (FP) PO SCH (10:01)
[2018-03-20] MEDS: lamoTRIgine 25 MG TABLET PO SCH (10:01)
[2018-03-20] MEDS: BACITRACIN 0.9 GM PACKET TP SCH ×2 (10:01→22:03)
[2018-03-20] MEDS: ARIPiprazole 10 MG TABLET PO SCH (10:02)
[2018-03-20] MEDS ORDERED: INSULIN (NOVOLOG) ASPART 100 UNITS/ML 10ML VIAL ONE ×2 (12:14→17:13)
[2018-03-20] MEDS: THIAMINE HCL 100 MG TABLET (FP) PO SCH (22:03)
[2018-03-20] MEDS: INSULIN (LEVEMIR) 100 UNITS/ML UNITS SQ SCH (22:04)
[2018-03-21] MEDS: VITAMINS A AND D TOPICAL OINTMENT 60 GM TUBE TP SCH ×3 (06:01→21:17)
[2018-03-21] MEDS: metFORMIN HCL 500 MG TABLET (FP) PO SCH ×2 (06:02→16:45)
[2018-03-21] MEDS: INSULIN (NOVOLOG) ASPART 100 UNITS/ML 10ML VIAL SQ SCH ×4 (06:05→21:17)
[2018-03-21] MEDS: PRENATAL VITAMINS W/ FOLIC ACID TABLET (FP) PO SCH (09:51)
[2018-03-21] MEDS: lamoTRIgine 25 MG TABLET PO SCH (09:51)
[2018-03-21] MEDS: LISINOPRIL 10 MG TABLET (FP) PO SCH (09:51)
[2018-03-21] MEDS: BACITRACIN 0.9 GM PACKET TP SCH ×2 (09:51→21:17)
[2018-03-21] MEDS: ARIPiprazole 10 MG TABLET PO SCH (09:51)
[2018-03-21] MEDS: ASPIRIN COATED 81 MG TABLET.EC PO SCH (09:51)
[2018-03-21] MEDS ORDERED: INSULIN (NOVOLOG) ASPART 100 UNITS/ML 10ML VIAL ONE ×3 (12:05→21:50)
[2018-03-21] MEDS: THIAMINE HCL 100 MG TABLET (FP) PO SCH (21:17)
[2018-03-21] MEDS: INSULIN (LEVEMIR) 100 UNITS/ML UNITS SQ SCH (21:17)
[2018-03-22] MEDS: metFORMIN HCL 500 MG TABLET (FP) PO SCH ×2 (06:41→17:09)
[2018-03-22] MEDS ORDERED: INSULIN (NOVOLOG) ASPART 100 UNITS/ML 10ML VIAL ONE ×3 (07:45→21:29)
[2018-03-22] MEDS: INSULIN (NOVOLOG) ASPART 100 UNITS/ML 10ML VIAL SQ SCH ×4 (07:46→21:32)
[2018-03-22] MEDS: VITAMINS A AND D TOPICAL OINTMENT 60 GM TUBE TP SCH ×3 (07:47→21:33)
[2018-03-22] MEDS: lamoTRIgine 25 MG TABLET PO SCH (10:17)
[2018-03-22] MEDS: BACITRACIN 0.9 GM PACKET TP SCH ×2 (10:17→21:28)
[2018-03-22] MEDS: ARIPiprazole 10 MG TABLET PO SCH (10:17)
[2018-03-22] MEDS: ASPIRIN COATED 81 MG TABLET.EC PO SCH (10:17)
[2018-03-22] MEDS: LISINOPRIL 10 MG TABLET (FP) PO SCH (10:17)
[2018-03-22] MEDS: PRENATAL VITAMINS W/ FOLIC ACID TABLET (FP) PO SCH (10:18)
[2018-03-22] MEDS: CYCLOBENZAPRINE HCL 5 MG TABLET PO PRN ×2 (14:45→21:29)
[2018-03-22] MEDS: THIAMINE HCL 100 MG TABLET (FP) PO SCH (21:28)
[2018-03-22] MEDS: INSULIN (LEVEMIR) 100 UNITS/ML UNITS SQ SCH (21:32)
[2018-03-23] MEDS: metFORMIN HCL 500 MG TABLET (FP) PO SCH ×2 (06:07→16:47)
[2018-03-23] MEDS ORDERED: INSULIN (NOVOLOG) ASPART 100 UNITS/ML 10ML VIAL ONE ×4 (06:09→21:54)
[2018-03-23] MEDS: INSULIN (NOVOLOG) ASPART 100 UNITS/ML 10ML VIAL SQ SCH ×4 (06:11→21:19)
[2018-03-23] MEDS: VITAMINS A AND D TOPICAL OINTMENT 60 GM TUBE TP SCH ×3 (07:04→21:20)
[2018-03-23] MEDS: PRENATAL VITAMINS W/ FOLIC ACID TABLET (FP) PO SCH (09:44)
[2018-03-23] MEDS: ARIPiprazole 10 MG TABLET PO SCH (09:45)
[2018-03-23] MEDS: ASPIRIN COATED 81 MG TABLET.EC PO SCH (09:45)
[2018-03-23] MEDS: LISINOPRIL 10 MG TABLET (FP) PO SCH (09:45)
[2018-03-23] MEDS: BACITRACIN 0.9 GM PACKET TP SCH ×2 (09:45→21:19)
[2018-03-23] MEDS: lamoTRIgine 25 MG TABLET PO SCH (09:45)
[2018-03-23] MEDS: THIAMINE HCL 100 MG TABLET (FP) PO SCH (21:19)
[2018-03-23] MEDS: INSULIN (LEVEMIR) 100 UNITS/ML UNITS SQ SCH (21:19)
[2018-03-24] MEDS: metFORMIN HCL 500 MG TABLET (FP) PO SCH ×2 (06:52→17:00)
[2018-03-24] MEDS ORDERED: INSULIN (NOVOLOG) ASPART 100 UNITS/ML 10ML VIAL ONE ×2 (06:56→11:43)
[2018-03-24] MEDS: VITAMINS A AND D TOPICAL OINTMENT 60 GM TUBE TP SCH ×3 (07:02→21:21)
[2018-03-24] MEDS: INSULIN (NOVOLOG) ASPART 100 UNITS/ML 10ML VIAL SQ SCH ×4 (07:03→21:22)
[2018-03-24] MEDS: BACITRACIN 0.9 GM PACKET TP SCH ×2 (09:52→21:20)
[2018-03-24] MEDS: LISINOPRIL 10 MG TABLET (FP) PO SCH (09:52)
[2018-03-24] MEDS: ASPIRIN COATED 81 MG TABLET.EC PO SCH (09:52)
[2018-03-24] MEDS: ARIPiprazole 10 MG TABLET PO SCH (09:52)
[2018-03-24] MEDS: lamoTRIgine 25 MG TABLET PO SCH (09:52)
[2018-03-24] MEDS: PRENATAL VITAMINS W/ FOLIC ACID TABLET (FP) PO SCH (09:52)
[2018-03-24] MEDS: THIAMINE HCL 100 MG TABLET (FP) PO SCH (21:21)
[2018-03-24] MEDS: INSULIN (LEVEMIR) 100 UNITS/ML UNITS SQ SCH (21:22)
[2018-03-25] MEDS: metFORMIN HCL 500 MG TABLET (FP) PO SCH ×2 (06:34→16:56)
[2018-03-25] MEDS ORDERED: INSULIN (NOVOLOG) ASPART 100 UNITS/ML 10ML VIAL ONE ×2 (06:35→11:50)
[2018-03-25] MEDS: INSULIN (NOVOLOG) ASPART 100 UNITS/ML 10ML VIAL SQ SCH ×4 (07:09→21:24)
[2018-03-25] MEDS: VITAMINS A AND D TOPICAL OINTMENT 60 GM TUBE TP SCH ×3 (07:09→21:21)
[2018-03-25] MEDS: ASPIRIN COATED 81 MG TABLET.EC PO SCH (10:04)
[2018-03-25] MEDS: BACITRACIN 0.9 GM PACKET TP SCH ×2 (10:04→21:21)
[2018-03-25] MEDS: PRENATAL VITAMINS W/ FOLIC ACID TABLET (FP) PO SCH (10:04)
[2018-03-25] MEDS: ARIPiprazole 10 MG TABLET PO SCH (10:04)
[2018-03-25] MEDS: LISINOPRIL 10 MG TABLET (FP) PO SCH (10:04)
[2018-03-25] MEDS: lamoTRIgine 25 MG TABLET PO SCH (10:04)
[2018-03-25] MEDS: THIAMINE HCL 100 MG TABLET (FP) PO SCH (21:21)
[2018-03-25] MEDS: INSULIN (LEVEMIR) 100 UNITS/ML UNITS SQ SCH (21:22)
[2018-03-25] MEDS: CYCLOBENZAPRINE HCL 5 MG TABLET PO PRN (21:25)
[2018-03-26] MEDS: INSULIN (NOVOLOG) ASPART 100 UNITS/ML 10ML VIAL SQ SCH ×4 (06:44→21:15)
[2018-03-26] MEDS: metFORMIN HCL 500 MG TABLET (FP) PO SCH ×2 (06:45→16:42)
[2018-03-26] MEDS: VITAMINS A AND D TOPICAL OINTMENT 60 GM TUBE TP SCH ×3 (06:45→21:17)
[2018-03-26 06:46] VITALS: TEMP 98.8
[2018-03-26] MEDS ORDERED: INSULIN (NOVOLOG) ASPART 100 UNITS/ML 10ML VIAL ONE ×4 (06:48→21:48)
[2018-03-26] MEDS: PRENATAL VITAMINS W/ FOLIC ACID TABLET (FP) PO SCH (10:01)
[2018-03-26] MEDS: LISINOPRIL 10 MG TABLET (FP) PO SCH (10:01)
[2018-03-26] MEDS: ARIPiprazole 10 MG TABLET PO SCH (10:01)
[2018-03-26] MEDS: lamoTRIgine 25 MG TABLET PO SCH (10:02)
[2018-03-26] MEDS: ASPIRIN COATED 81 MG TABLET.EC PO SCH (10:02)
[2018-03-26] MEDS: BACITRACIN 0.9 GM PACKET TP SCH ×2 (10:02→21:14)
[2018-03-26 12:55] VITALS: BP 138/75; PULSE 100
[2018-03-26] MEDS: THIAMINE HCL 100 MG TABLET (FP) PO SCH (21:14)
[2018-03-26] MEDS: INSULIN (LEVEMIR) 100 UNITS/ML UNITS SQ SCH (21:15)
== END 2018-03-26 23:55 | disposition left against medical advice (07) | DRG 770 ==
LOC: YASAS 12:59 → Y5N 13:00
PROVIDERS: ADMIT Psychiatry & Neurology Psychiatry; ATTEND Psychiatry & Neurology Psychiatry
PROC: HZ42ZZZ Group Counseling for Substance Abuse Treatment, Cognitive-Behavioral (ICD-10-PCS; principal; 2018-03-16)
DX: F10.20 Alcohol dependence, uncomplicated (principal); F14.20 Cocaine dependence, uncomplicated; F12.20 Cannabis dependence, uncomplicated; F31.9 Bipolar disorder, unspecified; E11.9 Type 2 diabetes mellitus without complications; Z79.4 Long term (current) use of insulin; Z79.84 Long term (current) use of oral hypoglycemic drugs; Z59.0 Homelessness
CPT/HCPCS: 82962; 83036